=== PATIENT | male | born 1945 | race Hispanic/Latino ===

== ENCOUNTER 2017-07-31 10:56 | Emergency (ER) | payer MEDICARE ==
[2017-07-31 11:05] VITALS: BP 158/100; PULSE 73; RESP 18; TEMP 97.4; O2SAT 98
[2017-07-31] MEDS ORDERED: Tetracaine 0.5% Ophth 2 ML BOTTLE OD ONE (11:07)
[2017-07-31] MEDS ORDERED: Fluorescein 1 mg Ophthalmic Strip OD ONE (11:08)
--- NOTE | 2017-07-31 11:12 | C.PDOC ---
History Of Present Illness 71 y/o male c/o pain. blurry vision, fb sensation and light sensitivity after being poked in left eye last night by grandson accidentally. Time Seen by Provider: 07/31/17 11:06 Chief Complaint (Nursing): Eye Problem History Per: Patient History/Exam Limitations: no limitations Onset/Duration Of Symptoms: Days (1) Current Symptoms Are (Timing): Still Present Injury To Eye?: Yes Severity: Moderate Pain Scale Rating Of: 7 Quality: Sharp, Burning Wears Contact Lens?: No Associated Symptoms: Pain, FB Sensation, Discharge From Eye (watery) Past Medical History Reviewed: Historical Data, Nursing Documentation, Vital Signs Vital Signs: Last Vital Signs Temp 97.4 F L 07/31/17 10:59 Pulse 73 07/31/17 10:59 Resp 18 07/31/17 10:59 BP 158/100 H 07/31/17 10:59 Pulse Ox 98 07/31/17 11:49 - Medical History PMH: Atrial Fibrillation, HTN Surgical History: Back Surgery (LAMINECTOMY) Family History: States: Unknown Family Hx - Social History Hx Alcohol Use: Yes Hx Substance Use: No - Immunization History Hx Influenza Vaccination: Yes Review Of Systems Constitutional: Negative for: Fever, Chills Eyes: Positive for: Pain, Vision Change, Redness ENT: Negative for: Ear Pain Skin: Negative for: Rash Physical Exam - Physical Exam Appears: Non-toxic, No Acute Distress (mildly uncomfortable. ) Skin: Warm, Dry Head: Atraumatic, Normacephalic Eye(s): bilateral: PERRL, EOMI, right: Normal Inspection, left: Other (mild conjunctival injection with watery discharge. ) Neurological/Psych: Oriented x3, Normal Speech, Normal Cognition ED Course And Treatment O2 Sat by Pulse Oximetry: 98 Medical Decision Making Medical Decision Makin71 y/o male poked in eye by 15 m/o grandson; will check vision, stain eye for abrasion. 1132 am large area of fluorescein uptake to proximal cornea extending half way over left pupil; will d/c with ofloxacin and ophthalmology f/u. order for fluorescein strip and tetracaine accidentally written for right eye; should have been left. pt reports he took his HTN medication prior to arrival in ED. Disposition Counseled Patient/Family Regarding: Studies Performed, Diagnosis, Need For Followup, Rx Given - Disposition Referrals: Cristian Siu [Staff Provider] - Disposition: HOME/ ROUTINE Disposition Time: 11:33 Condition: GOOD Additional Instructions: Please use drops as prescribed. Take Tylenol for pain if needed. Follow up with Dr Siu or strategic planning consultant of your choice as soon as possible. Return to ER for any worsening symptoms. Prescriptions: Ofloxacin Ophth 0.3% [Ocuflox Ophth 0.3%] 2 drop OS QID #1 bottle Instructions: Corneal Abrasion (DC) Forms: [facility] (Czech), General Discharge Instructions - Clinical Impression Clinical Impression: Corneal abrasion
[2017-07-31] MEDS ORDERED: Fluorescein 1 mg Ophthalmic Strip ONE (11:20)
[2017-07-31] MEDS ORDERED: Tetracaine 0.5% Ophth (OR ONLY) ONE (11:20)
== END 2017-07-31 11:50 | disposition home or self-care (01) ==
LOC: C.ER 10:56
DX: S05.02XA Injury of conjunctiva and corneal abrasion without foreign body, left eye, initial encounter (principal); W50.0XXA Accidental hit or strike by another person, initial encounter